=== PATIENT | female | born 1980 | race Caucasian/White ===

== ENCOUNTER → 2018-10-12 | Outpatient (CLI) | payer BC ==
[2018-10-12 08:11] LABS: HEMATOCRIT 42.7 % (36.0-47.0); HEMOGLOBIN 15.1 g/dL (12.0-15.5); MEAN CORPUSCULAR HEMOGLOBIN 29.5 pg (27.0-33.4); MEAN CORPUSCULAR HGB CONC 35.3 g/dL (32.0-36.0); MEAN CORPUSCULAR VOLUME 84 fl (80-97); PLATELET COUNT 279 10^3/uL (150-450); RED BLOOD COUNT 5.11 10^6/uL (3.72-5.28); RED CELL DISTRIBUTION WIDTH 13.7 % (11.5-14.0); WHITE BLOOD COUNT 9.1 10^3/uL (4.0-10.5)
[2018-10-12 08:36] LABS: ALBUMIN 4.2 g/dL (3.5-5.0); ALKALINE PHOSPHATASE 92 U/L (38-126); ANION GAP 11 (5-19); ASPARTATE AMINO TRANSFERASE 47 U/L (14-36); BILIRUBIN,DIRECT 0.2 mg/dL (0.0-0.4); BILIRUBIN,TOTAL 0.5 mg/dL (0.2-1.3); BLOOD UREA NITROGEN 15 mg/dL (7-20); CALCIUM 9.6 mg/dL (8.4-10.2); CARBON DIOXIDE 29 mmol/L (22-30); CHLORIDE 98 mmol/L (98-107); CHOLESTEROL 190.98 mg/dL (0-200); GLUCOSE 133 mg/dL (75-110); POTASSIUM 3.9 mmol/L (3.6-5.0); TOTAL PROTEIN 7.5 g/dL (6.3-8.2); TRIGLYCERIDES 397 mg/dL (<150)
[2018-10-12 09:11] LABS: DIRECT LDL 99 mg/dL (<100)
[2018-10-12 10:04] LABS: VLDL CHOLESTEROL 79.4 mg/dL (10-31)
--- NOTE | 2018-10-12 10:36 | RADIOLOGY REPORT (SQ) ---
EXAM DESCRIPTION: CHEST PA/LATERAL COMPLETED DATE/TIME: 10/12/2018 8:00 am REASON FOR STUDY: ESSENTIAL (PRIMARY) HYPERTENSION,MORBID (SEVERE) OBESITY DUE TO EXCESS YODIT COMPARISON: None. EXAM PARAMETERS: NUMBER OF VIEWS: two views TECHNIQUE: Digital Frontal and Lateral radiographic views of the chest acquired. RADIATION DOSE: NA LIMITATIONS: none FINDINGS: LUNGS AND PLEURA: No opacities, masses or pneumothorax. No pleural effusion. MEDIASTINUM AND HILAR STRUCTURES: No masses or contour abnormalities. HEART AND VASCULAR STRUCTURES: Heart normal size. No evidence for failure. BONES: No acute findings. HARDWARE: None in the chest. OTHER: No other significant finding. IMPRESSION: NO SIGNIFICANT RADIOGRAPHIC FINDING IN THE CHEST. TECHNICAL DOCUMENTATION: JOB ID: [id number] [employer]- All Rights Reserved Reading location - IP/workstation name: [email or web address]
--- NOTE | 2018-10-13 10:09 | EKG REPORT ---
SEVERITY:- NORMAL ECG - SINUS RHYTHM : Confirmed by: Sue Ruth 13-Oct-2018 10:09:08
[2018-10-14 18:45] LABS: VITAMIN A 42.4 ug/dL (18.9-57.3)
[2018-10-15 07:02] LABS: VITAMIN B1 (THIAMINE) 148.6 nmol/L (66.5-200.0)
== END ==
LOC: OD 07:07
PROVIDERS: ATTEND Student in an Organized Health Care Education/Training Program
DX: Z01.818 Encounter for other preprocedural examination (principal); K21.9 Gastro-esophageal reflux disease without esophagitis; I10 Essential (primary) hypertension; E28.2 Polycystic ovarian syndrome; E88.81 Metabolic syndrome and other insulin resistance; E66.01 Morbid (severe) obesity due to excess calories; Z68.41 Body mass index [BMI] 40.0-44.9, adult
CPT/HCPCS: 36415; 71046; 80053; 80061; 82306; 82607; 82728; 82746; 83036; 83540; 83550; 83970; 84425; 84443; 84466; 84590; 85027; 93005; 93010

== ENCOUNTER → 2019-11-14 | Outpatient (CLI) | payer MEDICAID ==
--- NOTE | 2019-11-14 10:43 | RADIOLOGY REPORT (SQ) ---
EXAM DESCRIPTION: U/S ABDOMEN LIMITED W/O DOP IMAGES COMPLETED DATE/TIME: 11/14/2019 8:23 am REASON FOR STUDY: R74.8 ABNORMAL LEVELS OF OTHER SERUM ENZYMES R74.8 ABNORMAL LEVELS OF OTHER SERUM ENZYMES R06.09 OTHER FORMS OF DYSPNEA COMPARISON: None. TECHNIQUE: Dynamic and static grayscale images acquired of the abdomen and recorded on PACS. Additio nal selected color Doppler and spectral images recorded. LIMITATIONS: Limited visualization. Poor acoustical window FINDINGS: PANCREAS: Limited visualization. no masses seen LIVER: Normal size Mild fatty infiltration. No focal masses. LIVER VASCULATURE: Normal directional flow of the main portal vein and hepatic veins. GALLBLADDER: No stones. Normal wall thickness. No pericholecystic fluid. ULTRASOUND-DETECTED REYNOLDS'S SIGN: Negative. INTRAHEPATIC DUCTS AND COMMON DUCT: CBD and intrahepatic ducts normal caliber. No filling defects. INFERIOR VENA CAVA: Normal flow. AORTA: No aneurysm. RIGHT KIDNEY: Normal size. Normal echogenicity. No solid or suspicious masses. No hydronephros is. No calcifications. PERITONEAL AND RIGHT PLEURAL SPACE: No ascites or effusions. OTHER: No other significant findings. IMPRESSION: Fatty liver. No acute findings. TECHNICAL DOCUMENTATION: JOB ID: [id number] [employer]- All Rights Reserved Reading location - IP/workstation name: [email or web address]
--- NOTE | 2019-11-14 17:51 | XCELERA REPORT ---
[address] [address] Transthoracic Echocardiogram Report Name: ZEE JACOB Age: 39 yrs Gender: Female : 1980 Patient Status: Outpatient Patient Location: [facility] Study Date: 11/14/2019 07:23 AM Height: 62 in Weight: 223 lb BSA: 2.0 m2 Procedure: A complete two-dimensional transthoracic echocardiogram was performed (2D, M-mode, spectral and color flow Doppler). The study was technically difficult with many images being suboptimal in quality. Reason For Study: DYSPNEA Ordering Physician: SELIN CAZARES Performed By: Mojgan Lewis Interpretation Summary LEFT VENTRICLE: LV Systolic function: LVEF is felt to be within normal limits. Best estimate is approximately LVEF is 60 %. LV Diastolic Function: Grade II diastolic dysfunction noted. Wall motion : Cannot comment on wall motion as not all wall segments were well visualized. Left ventricular chamber size : is within normal limit. Left ventricular wall thickness : is increased indicative of Mild LVH. INTERVENTRICULAR SEPTUM: no evidence of VSD noted. No asymmetric hypertrophy noted. RIGHT VENTRICLE: RV systolic function : is felt to be within normal limit. Right Ventricle Size : borderline dilated. LEFT ATRIUM size : mildly dilated. RIGHT ATRIUM size : is within normal limit. INTER ATRIAL SEPTUM : No definite atrial septal defect noted however a small PFO could be missed. AORTIC ROOT : seems to be within normal limits. Ascending aorta is not well visualized. INFERIOR VENA CAVA: was not well visualized. VALVES: MITRAL VALVE : Leaflets are mildly thickened. Mobility seems to be within normal limits. Mitral Regurgitation : Trace mitral regurgitation is noted. Mitral Stenosis: No mitral stenosis noted. Mitral valve prolapse : none noted. AORTIC VALVE: seems to be trileaflet with thickening but adequate excursion. Aortic stenosis : No aortic stenosis noted. Aortic regurgitation : No aortic incompetence noted. TRICUSPID VALVE : mobility and structures within normal limit. Tricuspid stenosis : no tricuspid stenosis noted. Tricuspid regurgitation : Trace tricuspid regurgitation noted. Estimated RVSP : tricuspid jet envelope not well defined to measure RV systolic pressure accurately. PULMONARY VALVE : was not well visualized but no significant abnormalities suspected. Pulmonary stenosis : no significant pulmonary stenosis noted. Pulmonary regurgitation : no significant pulmonary regurgitation noted. MASSES AND THROMBUS : No definite intracardiac thrombus or masses are noted. PERICARDIUM: No pericardial effusion was noted. IMPRESSION : 1. Normal LVEF. 2. Mild LVH noted. 3. Grade II Diastolic Dysfunction noted. 4. No significant valvular stenosis or regurgitation noted. 5. Study was technically difficult therefore clinical correlation is requested. May consider further evaluation with cardiac CTA, cardiac MRI or MUGA scan as clinically. MMode/2D Measurements & Calculations RVDd: 2.0 cm LVIDd: 3.1 cm FS: 32.4 % Ao root diam: 2.2 cm IVSd: 1.1 cm LVIDs: 2.1 cm EDV(Teich): 39.3 ml Ao root area: 3.7 cm2 LVPWd: 0.86 cm ESV(Teich): 14.8 ml EF(Teich): 62.2 % Doppler Measurements & Calculations MV E max sonia: MV dec slope: Ao V2 max: LV V1 max P.6 cm/sec 762.6 cm/sec2 143.3 cm/sec 4.6 mmHg MV A max sonia: MV dec time: 0.13 secAo max PG: LV V1 max: 121.1 cm/sec 8.2 mmHg 107.7 cm/sec MV E/A: 0.79 PA V2 max: PI end-d sonia: 74.8 cm/sec 88.7 cm/sec PA max P.2 mmHg : SELIN CAZARES Shyamal
== END ==
LOC: RAD 07:43
PROVIDERS: ATTEND Registered Nurse
DX: R74.8 Abnormal levels of other serum enzymes (principal); R06.09 Other forms of dyspnea; K76.0 Fatty (change of) liver, not elsewhere classified
CPT/HCPCS: 76705; 93306

== ENCOUNTER → 2020-03-24 | Outpatient (CLI) | payer MEDICAID ==
[2020-03-24 13:16] LABS: ABSOLUTE EOSINOPHILS # (AUTO) 0.1 10^3/uL (0.0-0.6); ABSOLUTE LYMPHOCYTES (AUTO) 2.4 10^3/uL (0.5-4.7); ABSOLUTE MONOCYTES (AUTO) 1.1 10^3/uL (0.1-1.4); ABSOLUTE NEUT (AUTO) 10.3 10^3/uL (1.7-8.2); BASOPHILS % (AUTO) 0.3 % (0-2); HEMATOCRIT 43.2 % (36.0-47.0); HEMOGLOBIN 14.8 g/dL (12.0-15.5); LYMPHOCYTES % (AUTO) 17.1 % (13-45); MEAN CORPUSCULAR HEMOGLOBIN 29.4 pg (27.0-33.4); MEAN CORPUSCULAR HGB CONC 34.2 g/dL (32.0-36.0); MEAN CORPUSCULAR VOLUME 86 fl (80-97); MONOCYTES % (AUTO) 7.6 % (3-13); PLATELET COUNT 265 10^3/uL (150-450); RED BLOOD COUNT 5.03 10^6/uL (3.72-5.28); TOTAL CELLS COUNTED % (AUTO) 100 %
[2020-03-24 13:36] LABS: ANION GAP 9 (5-19); BLOOD UREA NITROGEN 26 mg/dL (7-20); CALCIUM 9.6 mg/dL (8.4-10.2); CARBON DIOXIDE 32 mmol/L (22-30); CHLORIDE 95 mmol/L (98-107); GLUCOSE 88 mg/dL (75-110)
== END ==
LOC: OD 12:25
PROVIDERS: ATTEND Specialist
DX: I10 Essential (primary) hypertension (principal); E28.2 Polycystic ovarian syndrome; R00.2 Palpitations; E66.01 Morbid (severe) obesity due to excess calories; M51.24 Other intervertebral disc displacement, thoracic region; E78.5 Hyperlipidemia, unspecified; Z79.899 Other long term (current) drug therapy
CPT/HCPCS: 36415; 80048; 83735; 85025